=== PATIENT | male | born 1990 | race Hispanic/Latino ===

== ENCOUNTER 2018-11-19 18:16 | Emergency (ER) | payer SELFPAY ==
[2018-11-19] MEDS ORDERED: PEN G BENZ LA 2.4 MU/4 ML SYRINGE IM ONE (20:13)
[2018-11-19] MEDS ORDERED: dexAMETHasone 4 MG TAB ONE (20:13)
--- NOTE | 2018-11-19 20:27 | ER ---
Nurse's Notes [facility] Name: Idris Cárdenas Age: 28 yrs Sex: Male : 1990 Arrival Date: 11/19/2018 Time: 18:20 Bed 25 Private MD: Diagnosis: Streptococcal pharyngitis Presentation: 11/19 18:30 Presenting complaint: Patient states: I have been having a lot of phlem and while I am la1 at work I have been getting dizzy. Transition of care: patient was not received from another setting of care. Onset of symptoms was November 19, 2018. Risk Assessment: Do you want to hurt yourself or someone else? Patient reports no desire to harm self or others. Initial Sepsis Screen: Does the patient meet any 2 criteria? No. Patient's initial sepsis screen is negative. Does the patient have a suspected source of infection? No. Patient's initial sepsis screen is negative. Care prior to arrival: None. 18:30 Method Of Arrival: Ambulatory la1 18:30 Acuity: CAMILLA 3 la1 Historical: - Allergies: 18:31 No Known Allergies; la1 - PMHx: 18:31 None; la1 - Immunization history:: Adult Immunizations up to date. - Social history:: Smoking status: Patient uses tobacco products, smokes one-half pack cigarettes per day. - Ebola Screening: : No symptoms or risks identified at this time. Screenin:20 Abuse screen: Denies threats or abuse. Denies injuries from another. Nutritional mg2 screening: No deficits noted. Tuberculosis screening: No symptoms or risk factors identified. Fall Risk None identified. Assessment: 20:19 General: Appears in no apparent distress. comfortable, Behavior is calm, cooperative. mg2 Pain: Complains of pain in throat and abdomen Pain does not radiate. Pain currently is 4 out of 10 on a pain scale. Neuro: Level of Consciousness is awake, alert, obeys commands, Oriented to person, place, time, situation. Cardiovascular: Capillary refill < 3 seconds Patient's skin is warm and dry. Rhythm is regular. Respiratory: Airway is patent Respiratory effort is even, unlabored, Breath sounds are clear bilaterally. in right upper lobe and left upper lobe. GI: Reports lower abdominal pain, upper abdominal pain. : No signs and/or symptoms were reported regarding the genitourinary system. EENT: Reports sore throat. Derm: Skin is intact, is healthy with good turgor, Skin is pink, warm \T\ dry. normal. Musculoskeletal: Circulation, motion, and sensation intact. Capillary refill < 3 seconds. Vital Signs: 18:31 BP 115 / 95; Pulse 101; Resp 16; Temp 98.4; Pulse Ox 100% on R/A; Weight 111.13 kg; la1 Height 6 ft. 0 in. (182.88 cm); 20:54 BP 125 / 78; Pulse 92; Resp 17; Temp 98; Pulse Ox 100% on R/A; Pain 1/10; mg2 18:31 Body Mass Index 33.23 (111.13 kg, 182.88 cm) la1 ED Course: 18:20 Patient arrived in ED. mr 18:31 Triage completed. la1 18:31 Arm band placed on left wrist. la1 18:52 [facility] snw 18:52 Vincenzo Espinoza MD is Attending Physician. snw 19:34 Chetan Lindsey, RAMO is Primary Nurse. mg2 20:20 No provider procedures requiring assistance completed. Patient did not have IV access mg2 during this emergency room visit. 20:21 Patient has correct armband on for positive identification. mg2 Administered Medications: 20:18 Drug: Bicillin L-A 2.4 million units {Note: 2 ml on left gluteus and 2 ml in right mg2 gluteus.} Route: IM; Site: left gluteus; 20:54 Follow up: Response: No adverse reaction mg2 20:18 Drug: Decadron 8 mg Route: PO; mg2 20:53 Follow up: Response: No adverse reaction mg2 Outcome: 20:24 Discharge ordered by . snw 20:55 Patient left the ED. mg2 Signatures: Meghna Donato FNP-C FNP-Cydney Karissa Velasquez Dov Hernandez, RN RN la1 Chetan Lindsey RN RN mg2
--- NOTE | 2018-11-19 20:27 | EDPHYS ---
[facility] Name: Idris Cárdenas Age: 28 yrs Sex: Male : 1990 Arrival Date: 11/19/2018 Time: 18:20 Bed 25 Private MD: ED Physician Vincenzo Espinoza HPI: 11/19 20:14 This 28 yrs old Male presents to ER via Ambulatory with complaints of snw Breathing Difficulty, Weakness. 20:14 This 28 yrs old Male presents to ER via Ambulatory with complaints of snw Breathing Difficulty, Weakness. 20:15 The patient presents with sore throat. The patient describes throat pain as congestion. snw Onset: The symptoms/episode began/occurred suddenly, 2 day(s) ago, and became persistent. Severity of symptoms: At their worst the symptoms were moderate. Associated signs and symptoms: The patient has no apparent associated signs or symptoms. The patient has not experienced similar symptoms in the past. The patient has not recently seen a physician. occasional dizziness at work. Historical: - Allergies: 18:31 No Known Allergies; la1 - PMHx: 18:31 None; la1 - Immunization history:: Adult Immunizations up to date. - Social history:: Smoking status: Patient uses tobacco products, smokes one-half pack cigarettes per day. - Ebola Screening: : No symptoms or risks identified at this time. ROS: 20:13 Eyes: Negative for injury, pain, redness, and discharge. snw 20:13 Neck: Negative for injury, pain, and swelling, Cardiovascular: Negative for chest pain, palpitations, and edema, Respiratory: Negative for shortness of breath, cough, wheezing, and pleuritic chest pain, Abdomen/GI: Negative for abdominal pain, nausea, vomiting, diarrhea, and constipation, Back: Negative for injury and pain, : Negative for injury, bleeding, discharge, and swelling, MS/Extremity: Negative for injury and deformity, Skin: Negative for injury, rash, and discoloration. 20:13 Constitutional: Positive for fatigue, malaise, poor PO intake. 20:13 ENT: Positive for facial pain and congestion. 20:13 Neuro: Positive for dizziness. Exam: 20:13 Constitutional: This is a well developed, well nourished patient who is awake, alert, snw and in no acute distress. Head/Face: Normocephalic, atraumatic. Eyes: Pupils equal round and reactive to light, extra-ocular motions intact. Lids and lashes normal. Conjunctiva and sclera are non-icteric and not injected. Cornea within normal limits. Periorbital areas with no swelling, redness, or edema. Neck: Trachea midline, no thyromegaly or masses palpated, and no cervical lymphadenopathy. Supple, full range of motion without nuchal rigidity, or vertebral point tenderness. No Meningismus. Chest/axilla: Normal chest wall appearance and motion. Nontender with no deformity. No lesions are appreciated. Cardiovascular: Regular rate and rhythm with a normal S1 and S2. No gallops, murmurs, or rubs. Normal PMI, no JVD. No pulse deficits. Respiratory: Lungs have equal breath sounds bilaterally, clear to auscultation and percussion. No rales, rhonchi or wheezes noted. No increased work of breathing, no retractions or nasal flaring. Abdomen/GI: Soft, non-tender, with normal bowel sounds. No distension or tympany. No guarding or rebound. No evidence of tenderness throughout. Back: No spinal tenderness. No costovertebral tenderness. Full range of motion. Skin: Warm, dry with normal turgor. Normal color with no rashes, no lesions, and no evidence of cellulitis. MS/ Extremity: Pulses equal, no cyanosis. Neurovascular intact. Full, normal range of motion. Psych: Awake, alert, with orientation to person, place and time. Behavior, mood, and affect are within normal limits. 20:13 ENT: External ear(s): are unremarkable, TM's: are normal, Nose: is normal, Mouth: is normal, Posterior pharynx: Uvula: midline, swelling, that is mild, erythema, that is moderate, Voice: is normal. 20:13 Neuro: Orientation: is normal, Mentation: is normal, Memory: is normal. Vital Signs: 18:31 BP 115 / 95; Pulse 101; Resp 16; Temp 98.4; Pulse Ox 100% on R/A; Weight 111.13 kg; la1 Height 6 ft. 0 in. (182.88 cm); 20:54 BP 125 / 78; Pulse 92; Resp 17; Temp 98; Pulse Ox 100% on R/A; Pain 1/10; mg2 18:31 Body Mass Index 33.23 (111.13 kg, 182.88 cm) la1 MDM: 19:00 Patient medically screened. snw 20:25 Data reviewed: vital signs, nurses notes. Data interpreted: Pulse oximetry: on room air snw is 100 %. Interpretation: normal. Counseling: I had a detailed discussion with the patient and/or guardian regarding: the historical points, exam findings, and any diagnostic results supporting the discharge/admit diagnosis, the presence of at least one elevated blood pressure reading (>120/80) during this emergency department visit, lab results, the need for outpatient follow up, to return to the emergency department if symptoms worsen or persist or if there are any questions or concerns that arise at home. Special discussion: Based on the history and exam findings, there is no indication for further emergent testing or inpatient evaluation. I discussed with the patient/guardian the need to see the primary care provider for further evaluation of the symptoms. 11/19 19:27 Order name: Strep; Complete Time: 20:03 snw Administered Medications: 20:18 Drug: Bicillin L-A 2.4 million units {Note: 2 ml on left gluteus and 2 ml in right mg2 gluteus.} Route: IM; Site: left gluteus; 20:54 Follow up: Response: No adverse reaction mg2 20:18 Drug: Decadron 8 mg Route: PO; mg2 20:53 Follow up: Response: No adverse reaction mg2 Disposition: 11/19/18 20:24 Discharged to Home. Impression: Streptococcal pharyngitis. - Condition is Stable. - Discharge Instructions: Strep Throat, Rehydration, Adult. - Work release form, Medication Reconciliation Form, Thank You Letter, Antibiotic Education, Prescription Opioid Use form. - Follow up: Private Physician; When: 2 - 3 days; Reason: Recheck today's complaints, Continuance of care, Re-evaluation by your physician. Follow up: Emergency Department; When: As needed; Reason: Worsening of condition. Signatures: Dispatcher [employer] EDMS Meghna Donato FNP-C [employer] Dov Foreman RN RN la1 Chetan Lindsey RN RN mg2 Corrections: (The following items were deleted from the chart) 20:55 20:24 11/19/2018 20:24 Discharged to Home. Impression: Streptococcal pharyngitis. mg2 Condition is Stable. Forms are Medication Reconciliation Form, Thank You Letter, Antibiotic Education, Prescription Opioid Use. Follow up: Private Physician; When: 2 - 3 days; Reason: Recheck today's complaints, Continuance of care, Re-evaluation by your physician. Follow up: Emergency Department; When: As needed; Reason: Worsening of condition. [email or web address]
[2018-11-19 21:39] VITALS: O2SAT 100
[2018-11-19 21:40] VITALS: BP 125/78; TEMP 98
== END 2018-11-19 20:55 | disposition home or self-care (01) ==
LOC: ER 18:16
DX: J02.0 Streptococcal pharyngitis (principal); F17.210 Nicotine dependence, cigarettes, uncomplicated
CPT/HCPCS: 87081; 96372; 99283; J0561